=== PATIENT | male | born 1995 | race Caucasian/White ===

== ENCOUNTER 2017-03-15 19:09 | Emergency (ER) | payer OTHER ==
[~2017-03-15] VITALS: Ht 182.9 cm; Wt 122.5 kg
[2017-03-15 19:37] VITALS: Ht 182.9 cm; Wt 122.5 kg
[2017-03-15] MEDS ORDERED: ONDANSETRON (ODT) 4 MG TAB ODT STA (20:26)
[2017-03-15] MEDS ORDERED: ACETAMINOPHEN 325 MG TAB PO ONE (20:30)
[2017-03-15] MEDS ORDERED: IBUPROFEN 600 MG TAB PO ONE (20:30)
[2017-03-15] MEDS ORDERED: DICYCLOMINE 10 MG CAP PO ONE (20:30)
--- NOTE | 2017-03-15 20:49 | ERD ---
ER Documentation Chief Complaint Date/Time DATE: 03/15/17 TIME: 20:42 Chief Complaint Vomiting since 929, unable to eat or drink. Temp 103.8F (tymp) (JACKI ROLDAN NP) HPI 21-year-old male presents to emergency department for complaints of vomiting and diarrhea that started today. Patient started to have fever. Patient had 4 episodes of vomiting, 4 episodes of diarrhea. Patient does not have any blood in the stool or black stool. Patient did not have any blood in the vomit. Patient has been having fever, patient did not take any medications to help with symptoms. Patient denies any abdominal pain. Patient denies any flank pain. Patient denies eating something or different. Patient denies any hematuria or dysuria. (JACKI ROLDAN NP) ROS All systems reviewed and are negative except as per history of present illness. (JACKI ROLDAN NP) Medications Home Meds Active Scripts Acetaminophen* (Tylophen*) 500 Mg Capsule, 1 CAP PO Q6H Y for PAIN AND OR ELEVATED TEMP, #20 CAP Prov:JACKI ROLDAN NP 03/15/17 Ibuprofen* (Motrin*) 600 Mg Tab, 600 MG PO Q6H Y for PAIN AND OR ELEVATED TEMP, #30 TAB Prov:JACKI ROLDAN NP 03/15/17 Cetirizine Hcl* (Zyrtec*) 10 Mg Capsule, 10 MG PO DAILY, #30 TAB.CHEW Prov:JACKI ROLDAN NP 03/15/17 Dicyclomine Hcl* (Bentyl*) 10 Mg Capsule, 10 MG PO QID, #20 CAP Prov:JACKI ROLDAN NP 03/15/17 Reported Medications [none] Unknown Strength No Conflict Check 03/15/17 Allergies Allergies: Coded Allergies: No Known Allergy (Unverified , 03/15/17) PMhx/Soc Medical and Surgical Hx: pt denies Medical Hx, pt denies Surgical Hx History of Surgery: No Hx Alcohol Use: No Hx Substance Use: No Hx Tobacco Use: No Smoking Status: Never smoker (JACKI ROLDAN NP) Physical Exam Physical Exam GENERAL: The patient is well developed and appropriate for usual state of health, in no apparent distress. CHEST: Clear to auscultation bilaterally. There are no rales, wheezes or rhonchi. HEART: Regular rate and rhythm. No murmurs, clicks, rubs or gallops. No S3 or S4. ABDOMEN: Soft, nontender and nondistended. Hyperactive bowel sounds. No rebound or guarding. No gross peritonitis. No gross organomegaly or masses. No Maria sign or McBurney point tenderness. BACK: No midline or flank tenderness. EXTREMITIES: Equal pulses bilaterally. There is no peripheral clubbing, cyanosis or edema. No focal swelling or erythema. Full range of motion. Grossly neurovascularly intact. NEURO: Alert and oriented. Cranial nerves 2-12 intact. Motor strength in all 4 extremities with 5/5 strength. Sensation grossly intact. Normal speech and gait. SKIN: There is no apparent rash or petechia. The skin is warm and dry. HEMATOLOGIC AND LYMPHATIC: There is no evidence of excessive bruising or lymphedema. No gross cervical, axillary, or inguinal lymphadenopathy. (JACKI ROLDAN NP) Results 24 hrs Current Medications Medications (Trade) Dose Ordered Sig/Jorge Route PRN Reason Start Time Stop Time Status Last Admin Dose Admin Ondansetron HCl (Zofran Odt) 4 mg ONCE STAT ODT 03/15/17 20:26 03/15/17 20:28 DC 03/15/17 20:59 Dicyclomine HCl (Bentyl) 20 mg ONCE ONCE PO 03/15/17 20:30 03/15/17 20:31 DC 03/15/17 21:01 Ibuprofen (Motrin) 600 mg ONCE ONCE PO 03/15/17 20:30 03/15/17 20:31 DC 03/15/17 21:00 Acetaminophen (Tylenol Tab) 650 mg ONCE ONCE PO 03/15/17 20:30 03/15/17 20:31 DC 03/15/17 21:01 (NOE TORRES MD) Results 24 hrs Patient was given medicines for fever control here in the emergency department. After treatment, patient temperature improved and lower. Patient appears well and is hemodynamically stable. Bentyl and Zofran was given here in emergency department, verbalized feeling much better afterwards Temperature rechecked 100, verbalized better. Heart Rate 98 bpm (JACKI ROLDAN NP) Procedures/MDM Medical Decision Making: Patient symptoms of vomiting and diarrhea most likely is consistent with viral gastroenteritis. Patient doesn't have abdominal pain. There is low suspicion for abdominal emergencies at this time. Patients abdominal exam is normal at this time. Patients radiology exam dnot indicated at this time. . There is low suspicion for appendicitis, cholecystitis, abdominal aortic aneurysms or peritonitis at this time. There is low suspicion for sepsis. Patient appears well and is hemodynamically stable. Disposition: Home. Condition: Stable Prescription Bentyl, Zofran, ibuprofen and Tylenol Instructions: Patient is advised to take medications as prescribed. Patient is advised to rest, increase fluid intake and do brat diet for next 1-2 days and progress as tolerated. Patient is advised that if symptoms are worse, severe abdominal pain, uncontrolled vomiting, high fever, severe flank pain, worst signs and symptoms, to return to the emergency department immediately. Otherwise, patient can follow up with primary care doctor in 5-7 days. Disclaimer: Inadvertent spelling and grammatical errors are likely due to EHR/ dictation software use and do not reflect on the overall quality of patient care. Also, please note that the electronic time recorded on this note does not necessarily reflect the actual time of the patient encounter. (JACKI ROLDAN NP) Physician addendum: Patient was seen by mid-level exclusively. Case was not discussed with me and I was unaware the patient while he was in the emergency department. The chart was not available for review by me until several days later. (NOE TORRES MD) Departure Diagnosis: Primary Impression: Viral gastroenteritis Condition: Stable Patient Instructions: Gastroenteritis, Viral (6Y-Adult) Additional Instructions: Patient is advised to take medications as prescribed. Patient is advised to rest , increase fluid intake and do brat diet for next 1-2 days and progress as tolerated. Patient is advised that if symptoms are worse, severe abdominal pain , uncontrolled vomiting, high fever, severe flank pain, worst signs and symptoms , to return to the emergency department immediately. Otherwise, patient can follow up with primary care doctor in 5-7 days. JACKI ROLDAN NP Mar 15, 2017 20:49 NOE TORRES MD Mar 24, 2017 22:05
[2017-03-15] MEDS ORDERED: IBUP-1542 PO (20:52)
[2017-03-15] MEDS ORDERED: ACET500C5 PO (20:52)
[2017-03-15] MEDS ORDERED: DICY10CA60 PO (20:52)
[2017-03-15] MEDS ORDERED: CETI10CA PO (20:52)
== END 2017-03-15 21:30 | disposition home or self-care (01) ==
LOC: FTE 19:09
DX: A08.4 Viral intestinal infection, unspecified (principal)
CPT/HCPCS: 99283

== ENCOUNTER 2018-01-17 01:46 | Emergency (ER) | END 2018-01-17 04:08 | disposition home or self-care (01) ==